=== PATIENT | male | born 1945 | race Caucasian/White ===

== ENCOUNTER 2016-07-25 08:03 | Emergency (ER) | payer MEDICARE ==
[~2016-07-25 08:03] MED LIST: Aspirin Low Dose CHEW TAB* 81 MG PO ONE
[2016-07-25] MEDS ORDERED: Nitroglycerin TAB 0.4 MG* 0.4 MG TAB SL ONE (08:13)
[2016-07-25] MEDS ORDERED: NS 0.9% 1000 ML* 1,000 ML IV ONE (08:13)
[2016-07-25 08:57] LABS: Hematocrit 43 % (42-52); Hemoglobin 14.6 g/dl (14.0-18.0); Mean Corpuscular HGB Conc 34 g/dl (31-36); Mean Corpuscular Hemoglobin 31 pg (27-31); Mean Corpuscular Volume 91 fL (80-94); Mean Platelet Volume 8 um3 (7.4-10.4); Red Blood Count 4.79 10^6/ul (4.0-5.4); Red Cell Distribution Width 14 % (10.5-15); White Blood Count 5.5 10^3/ul (3.5-10.8)
[2016-07-25 08:58] LABS: BUN/Creatinine Ratio 20.6 (8-20); Calcium 8.9 mg/dL (8.6-10.3); EGFR African American 66.6 (>60); EGFR Non-African American 51.8 (>60); Globulin 3.6 g/dL (2-4); Total Bilirubin 0.6 mg/dL (0.2-1.0); Total Protein 7.6 g/dL (6.4-8.9)
[2016-07-25 08:59] LABS: Troponin I 0.01 ng/mL (<0.04)
--- NOTE | 2016-07-25 09:08 | RAD ---
Indication: Sudden onset chest pain and shortness of breath. Previous myocardial infarction. Comparison: February 07, 2007 Technique: Upright AP 0850 hours Report: Mild elevation of the RIGHT hemidiaphragm increased over the prior exam. Mild prominence of the interstitial markings. Negative for pleural effusion or pneumothorax. Median sternotomy wires. Negative for cardiomegaly. Unremarkable central pulmonary vasculature and mediastinal contours. IMPRESSION: Mild prominence of the interstitial markings. No acute cardiopulmonary process evident.
[2016-07-25 11:18] VITALS: BP 102/64
--- NOTE | 2016-07-25 16:23 | ED ---
Moises Kiran Adam, scribed for Raul Hook MD on 07/25/16 at 0819 . HPI Chest Pain - HPI Summary HPI Summary: 70 y/o male presents to the ED and c/o CP and is concerned about MN. He describes the pain as hot and numb, especially on one side of the body. [employer]IC he took one baby aspirin and one tab NTG to with little alleviation. He states that he gets this same CP frequently at home. Pt states he also feels SOB, but denies any abd pain. He is currently on blood thinner but no pacemaker, and has a history of CAD and CHF including previous MN and 3 CABG's, the last of which 4 years ago. - History of Current Complaint Hx Obtained From: Patient Onset/Duration: Still Present Timing: Constant Initial Severity: Moderate Current Severity: Moderate Pain Intensity: 0 Character: Other: - Hot and Numb Aggravating Factor(s): Deep Breaths Alleviating Factor(s): OTC Meds - NTG and baby Aspirin (very little effect) Associated Signs and Symptoms: Positive: Chest Pain, Numbness, Shortness of Breath. Negative: Fever, Abdominal Pain - Allergy/Home Medications Allergies/Adverse Reactions: Allergies Allergy/AdvReac Type Severity Reaction Status Date / Time Heparin Allergy Bleeding Verified 07/25/16 08:23 PMH/Surg Hx/FS Hx/Imm Hx Cardiovascular History: Reports: Hx Congestive Heart Failure, Hx Coronary Artery Disease, Hx Myocardial Infarction Infectious Disease History: Denies: Traveled Outside the [place] in Last 30 Days - Family History Known Family History: Positive: Diabetes - Father - Social History Occupation: Disabled Lives: With Family - Review of Systems Negative: Fever Positive: Chest Pain Positive: Shortness Of Breath Negative: Abdominal Pain Positive: Other - pallor Positive: Numbness All Other Systems Reviewed And Are Negative: Yes Physical Exam - Summary Physical Exam Summary: The patient is well-nourished in no acute distress and in no acute pain. The skin is diaphoretic and pallor HEENT: The head is normocephalic and atraumatic. The pupils are equal and reactive. The conjunctivae are clear and without drainage. Nares are patent and without drainage. Mouth reveals moist mucous membranes and the throat is without erythema and exudate. The external ears are intact. The ear canals are patent and without drainage. The tympanic membranes are intact. Neck is supple with full range of motion and non-tender. There are no carotid bruits. There is no neck vein distension. Respiratory: Chest is non-tender. Lungs are clear to auscultation and breath sounds are symmetrical and equal. Cardiovascular: Hear is regular rate and rhythm. There is no murmur or rub auscultated. There is no peripheral edema and pulses are symmetrical and equal. Reproducible chest pain tenderness to palpation. Abdomen: The abdomen is soft and non-tender. There are normal bowel sounds heard in all four quadrants and there is no organomegaly palpated. Musculoskeletal: There is no back pain noted. Extremities are non-tender with full range of motion. There is good capillary refill. There is no peripheral edema or calf tenderness elicited. Neurological: Patient is alert and oriented to person, place and time. The patient has symmetrical motor strength in all four extremities. Cranial nerves are grossly intact. Deep tendon reflexes are symmetrical and equal in all four extremities. Psychiatric: The patient has an appropriate affect and does not exhibit any anxiety or depression. Triage Information Reviewed: Yes Vital Signs On Initial Exam: Initial Vitals Temp Pulse Resp BP Pulse Ox 98.2 F 60 18 98/60 97 07/25/16 08:08 07/25/16 08:08 07/25/16 08:08 07/25/16 08:08 07/25/16 08:08 Vital Signs Reviewed: Yes Diagnostics - Vital Signs Vital Signs Temp Pulse Resp BP Pulse Ox 07/25/16 08:08 98.2 F 60 18 98/60 97 - Laboratory Lab Results: Trop I: 0.01 Result Diagrams: 07/25/16 08:30 07/25/16 08:30 Lab Statement: Any lab studies that have been ordered have been reviewed, and results considered in the medical decision making process. - Radiology CXR Radiology Interpretation Completed By: Radiologist - Impression: Mid prominence of the interstitial markings, No acute cardiopulmonary process evident. - EKG 0803 Cardiac Rate: NL EKG Rhythm: Sinus Rhythm EKG Interpretation: No STEMI Re-Evaluation - Re-Evaluation First Eval Re-Evaluation Time: 10:19 - Reviewed labs, CXR, EKG, discussed admission for observation Second Eval Re-Evaluation Time: 11:09 - Patient does not wish to be admitted, so he will sign out AMA. Chest Pain Course/Dx - Course Course Of Treatment: 10:28 - Pt will be admitted. 11:09 - Pt does not wish to be admitted. He will sign out AMA. We discussed the risks of leaving against medical advice, including the risk of . Patient has a moderate risk of heart disease. - Chest Pain Differential Diagnosis/HQI/PQRI: Acute MN, Angina, Other: - ama - Diagnoses Provider Diagnoses: CHEST PAIN, AMA, Angina Discharge - Discharge Plan Condition: Stable Disposition: AGAINST MEDICAL ADVICE Patient Education Materials: Angina (ED), Chest Pain (ED) Referrals: Elijah Roldan MD [Primary Care Provider] - Additional Instructions: Follow up with the [facility] at [address] The documentation as recorded by the Moises hernandez Adam accurately reflects the service I personally performed and the decisions made by me, Raul Hook MD.
== END 2016-07-25 11:18 | disposition left against medical advice (07) ==
LOC: ED 08:03 → UNDOADMOB 10:52 → MEDTELE 10:52
DX: R07.9 Chest pain, unspecified (principal); I20.9 Angina pectoris, unspecified; R20.0 Anesthesia of skin; R06.02 Shortness of breath
CPT/HCPCS: 36415; 71010; 80053; 83605; 83880; 84484; 85025; 85610; 93005; 99283; A9270-GY

== ENCOUNTER 2016-08-31 21:38 | Emergency (ER) | payer MEDICARE ==
[2016-08-31 22:16] LABS: Hematocrit 40 % (42-52); Hemoglobin 13.5 g/dl (14.0-18.0); Mean Corpuscular HGB Conc 34 g/dl (31-36); Mean Corpuscular Hemoglobin 31 pg (27-31); Mean Corpuscular Volume 90 fL (80-94); Mean Platelet Volume 8 um3 (7.4-10.4); Red Blood Count 4.42 10^6/ul (4.0-5.4); Red Cell Distribution Width 15 % (10.5-15); White Blood Count 7.4 10^3/ul (3.5-10.8)
[2016-08-31 22:27] LABS: ALT 14 U/L (7-52); AST 19 U/L (13-39); Albumin 3.8 g/dL (3.2-5.2); Alkaline Phosphatase 49 U/L (34-104); Anion Gap 9 mmol/L (2-11); BUN/Creatinine Ratio 11.2 (8-20); Blood Urea Nitrogen 16 mg/dL (6-24); CO2 Carbon Dioxide 25 mmol/L (22-32); Calcium 8.8 mg/dL (8.6-10.3); Chloride 101 mmol/L (101-111); Creatine Kinase 85 U/L (10-223); EGFR African American 62.9 (>60); EGFR Non-African American 48.9 (>60); Globulin 3.7 g/dL (2-4); Glucose 144 mg/dL (70-100); Magnesium 1.9 mg/dL (1.9-2.7); Potassium 4.1 mmol/L (3.5-5.0); Sodium 135 mmol/L (133-145); Total Protein 7.5 g/dL (6.4-8.9)
[2016-08-31 22:29] LABS: Troponin I 0.02 ng/mL (<0.04)
--- NOTE | 2016-08-31 22:33 | ED ---
Ferny Kiran Billy, scribed for Ryan Norris MD on 08/31/16 at 2206 . Neurological HPI - HPI Summary HPI Summary: Patient is a 70 y/o male coming to [facility] for evaluation of numbness/weakness in the LUE and both lower extremities since 2030 today. Nothing makes his symptoms better/worse. Patient states he had a similar episode 1 month ago, but he signed out AMA. - History of Current Complaint Chief Complaint: EDWeakness Stated Complaint: WEAKNESS Time Seen by Provider: 08/31/16 22:03 Hx Obtained From: Patient Onset/Duration: Gradual Onset, Started hours ago, Still Present Timing: Constant Onset Severity: Moderate Current Severity: Moderate Neurological Deficit Location: LUE, RLE, LLE Pain Intensity: 8 Pain Scale Used: 0-10 Numeric Character: Weak, Numbness/Tingling Aggravating: Nothing Alleviating: Nothing - Allergy/Home Medications Allergies/Adverse Reactions: Allergies Allergy/AdvReac Type Severity Reaction Status Date / Time Heparin Allergy Bleeding Verified 07/25/16 08:23 PMH/Surg Hx/FS Hx/Imm Hx Cardiovascular History: Reports: Hx Congestive Heart Failure, Hx Coronary Artery Disease, Hx Myocardial Infarction Denies: Hx Pacemaker/ICD Infectious Disease History: No Infectious Disease History: Denies: Traveled Outside the [place] in Last 30 Days - Family History Known Family History: Positive: Diabetes - Father Review of Systems Negative: Fever Positive: Weakness, Numbness All Other Systems Reviewed And Are Negative: Yes Physical Exam Triage Information Reviewed: Yes Vital Signs On Initial Exam: Initial Vitals Temp Pulse Resp BP Pulse Ox 96.7 F 75 17 112/66 95 08/31/16 21:51 08/31/16 21:51 08/31/16 21:51 08/31/16 21:51 08/31/16 21:51 Vital Signs Reviewed: Yes Appearance: Positive: Well-Appearing, No Pain Distress - anxious Skin: Positive: Warm Head/Face: Positive: Normal Head/Face Inspection Eyes: Positive: DAI Neck: Positive: Supple Respiratory/Lung Sounds: Positive: Clear to Auscultation, Breath Sounds Present Cardiovascular: Positive: RRR Abdomen Description: Positive: Nontender, Soft Bowel Sounds: Positive: Present Musculoskeletal: Positive: Strength/ROM Intact Neurological: Positive: Sensory/Motor Intact, Alert, Oriented to Person Place, Time, Normal Gait Psychiatric: Positive: Affect/Mood Appropriate Diagnostics - Vital Signs Vital Signs Temp Pulse Resp BP Pulse Ox 08/31/16 21:51 96.7 F 75 17 112/66 95 - Laboratory Lab Results: Lab Results 08/31/16 08/31/16 08/31/16 Range/Units 21:57 21:57 21:57 WBC 7.4 (3.5-10.8) 10^3/ul RBC 4.42 (4.0-5.4) 10^6/ul Hgb 13.5 L (14.0-18.0) g/dl Hct 40 L (42-52) % MCV 90 (80-94) fL MCH 31 (27-31) pg MCHC 34 (31-36) g/dl RDW 15 (10.5-15) % Plt Count 136 L (150-450) 10^3/ul MPV 8 (7.4-10.4) um3 Neut % (Auto) 66.6 (38-83) % Lymph % (Auto) 20.8 L (25-47) % Mes[place] % (Auto) 10.3 H (1-9) % Eos % (Auto) 1.9 (0-6) % Baso % (Auto) 0.4 (0-2) % Absolute Neuts (auto) 4.9 (1.5-7.7) 10^3/ul Absolute Lymphs (auto) 1.5 (1.0-4.8) 10^3/ul Absolute Monos (auto) 0.8 (0-0.8) 10^3/ul Absolute Eos (auto) 0.1 (0-0.6) 10^3/ul Absolute Basos (auto) 0 (0-0.2) 10^3/ul Absolute Nucleated RBC 0.01 10^3/ul Nucleated RBC % 0.1 Sodium 135 (133-145) mmol/L Potassium 4.1 (3.5-5.0) mmol/L Chloride 101 (101-111) mmol/L Carbon Dioxide 25 (22-32) mmol/L Anion Gap 9 (2-11) mmol/L BUN 16 (6-24) mg/dL Creatinine 1.43 H (0.67-1.17) mg/dL Est GFR ( Amer) 62.9 (>60) Est GFR (Non-Af Amer) 48.9 (>60) BUN/Creatinine Ratio 11.2 (8-20) Glucose 144 H (70-100) mg/dL Lactic Acid 1.6 (0.5-2.0) mmol/L Calcium 8.8 (8.6-10.3) mg/dL Magnesium 1.9 (1.9-2.7) mg/dL Total Bilirubin 0.70 (0.2-1.0) mg/dL AST 19 (13-39) U/L ALT 14 (7-52) U/L Alkaline Phosphatase 49 (34-104) U/L Total Creatine Kinase 85 (10-223) U/L Troponin I 0.02 (<0.04) ng/mL Total Protein 7.5 (6.4-8.9) g/dL Albumin 3.8 (3.2-5.2) g/dL Globulin 3.7 (2-4) g/dL Albumin/Globulin Ratio 1.0 (1-3) TSH Pending Serum Alcohol Pending Result Diagrams: 08/31/16 21:57 08/31/16 21:57 Lab Statement: Any lab studies that have been ordered have been reviewed, and results considered in the medical decision making process. - Radiology CXR Xray Interpretation: No Acute Changes Radiology Interpretation Completed By: ED Physician - CT brain CT Interpretation: No Acute Changes CT Interpretation Completed By: Radiologist - EKG 2338 EKG Interpretation: NSR 69 bpm, poor R-wave progression, LBBB NIH Scale - NIH Scale Level of Consciousness: Alert/Keenly Responsive Ask Patient the Month and His/Her Age: Both Correct Ask Pt to Open/Close Eyes and Manager Lpn/Release Non-Paretic Hand: Both Correctly Best Gaze (Only Horizontal Eye Movement): Normal Visual Field Testing: No Visual Loss Facial Paresis-Pt to Smile & Close Eyes or Grimace Symmetry: Normal/Symmetrical Motor Function - Right Arm: No Drift-Holds 10 Seconds Motor Function - Left Arm: No Drift-Holds 10 Seconds Motor Function - Right Leg: No Drift-Holds 10 Seconds Motor Function - Left Leg: No Drift-Holds 10 Seconds Limb Ataxia-Must be out of Proportion to Weakness Present: Absent Sensory (Use Pinprick to Test Arms/Legs/Trunk/Face): Normal Best Language (Describe Picture, Name Items): No Aphasia Dysarthria (Read Several Words): Normal Extinction and Inattention: No Abnormality Total Score: 0 Re-Evaluation - Re-Evaluation First Eval Re-Evaluation Time: 00:52 Change: Improved Comment: Labs reviewed. Course/Dx - Diagnoses Provider Diagnoses: Weakness Discharge - Discharge Plan Condition: Stable Disposition: HOME Patient Education Materials: Weakness (ED) Referrals: Elijah Roldan MD [Primary Care Provider] - The documentation as recorded by the Ferny hernandez Billy accurately reflects the service I personally performed and the decisions made by me, Ryan Norris MD.
[2016-08-31 22:58] LABS: Alcohol < 10 mg/dL (<10)
[2016-08-31 23:09] LABS: TSH (Thyroid Stimulating Horm) 2.74 mcIU/mL (0.34-5.60)
[2016-08-31 23:15] VITALS: BP 124/68
--- NOTE | 2016-09-01 07:27 | RAD ---
INDICATION: Weakness, paresthesias. COMPARISON: There are no prior studies available for comparison. TECHNIQUE: Contiguous axial sections of the brain were obtained from the skull base to the vertex without contrast. FINDINGS: The ventricles, cisterns and sulci are enlarged consistent with age-related atrophy. 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 No other focal abnormalities or mass effect are seen. There is no evidence for hemorrhage. No significant focal osseous abnormality is seen. The visualized portion of the paranasal sinuses and mastoid air cells appear clear. IMPRESSION: NO EVIDENCE FOR GROSS ACUTE INFARCT, MASS EFFECT OR HEMORRHAGE.
--- NOTE | 2016-09-01 07:38 | RAD ---
INDICATION: Chest pain. COMPARISON: Comparison prior chest x-ray study from July 25 2016. Correlation is also made with a prior study from February 07, 2007. TECHNIQUE: AP and lateral views of the chest were obtained. FINDINGS: The patient is status post sternotomy. The heart is within normal limits in size. The lungs are underinflated. There is mild prominence of interstitial markings which are unchanged. No focal infiltrate or pleural effusion is seen. IMPRESSION: POSTSURGICAL CHANGES, NO EVIDENCE FOR ACUTE FINDING.
== END 2016-09-01 01:30 | disposition home or self-care (01) ==
LOC: ED 21:38
DX: R53.1 Weakness (principal); Z53.21 Procedure and treatment not carried out due to patient leaving prior to being seen by health care provider
CPT/HCPCS: 36415; 70450; 71020; 80053; 80320; 82550; 83605; 83735; 84443; 84484; 85025; 93005; 99283; G0480

== ENCOUNTER 2016-10-01 08:29 | Inpatient (IN) | payer MEDICARE, OTHER ==
[2016-10-01] MEDS ORDERED: Aspirin Low Dose CHEW TAB* 81 MG PO ONE (08:36)
[2016-10-01] MEDS ORDERED: Metoprolol Tartrate IV* 1 MG/ML 5 ML VIAL IV ONE (08:37)
[2016-10-01] MEDS ORDERED: Morphine INJ* 4 MG/ML 1 ML SYRINGE IV ONE (08:37)
[2016-10-01] MEDS ORDERED: NS 0.9% 1000 ML* 1,000 ML IV ONE (08:37)
[2016-10-01 09:16] LABS: Hematocrit 37 % (42-52); Hemoglobin 12.2 g/dl (14.0-18.0); Mean Corpuscular HGB Conc 33 g/dl (31-36); Mean Corpuscular Hemoglobin 30 pg (27-31); Mean Corpuscular Volume 93 fL (80-94); Mean Platelet Volume 8 um3 (7.4-10.4); Red Blood Count 4.03 10^6/ul (4.0-5.4); Red Cell Distribution Width 15 % (10.5-15); White Blood Count 5.4 10^3/ul (3.5-10.8)
[2016-10-01 09:30] LABS: Albumin 3.8 g/dL (3.2-5.2); BUN/Creatinine Ratio 12.7 (8-20); Calcium 9.1 mg/dL (8.6-10.3); EGFR African American 92.6 (>60); Globulin 3.7 g/dL (2-4); Potassium 4.3 mmol/L (3.5-5.0); Total Bilirubin 0.8 mg/dL (0.2-1.0); Total Protein 7.5 g/dL (6.4-8.9)
--- NOTE | 2016-10-01 09:32 | RAD ---
HISTORY: Chest pain COMPARISONS: August 31, 2016 VIEWS:1: Single frontal portable view of the chest at 8:45 AM FINDINGS: LINES AND TUBES: None. CARDIOMEDIASTINAL SILHOUETTE: The cardiomediastinal silhouette is normal for portable technique. PLEURA: The costophrenic angles are sharp. No pleural abnormalities are noted. LUNG PARENCHYMA: There is a diffuse reticular pattern with indistinct pulmonary vessels. ABDOMEN: The upper abdomen is clear. There is no subphrenic gas. BONES AND SOFT TISSUES: The patient is status post median sternotomy. IMPRESSION: PULMONARY INTERSTITIAL EDEMA
[2016-10-01 10:03] LABS: Troponin I 1.35 ng/mL (<0.04)
[2016-10-01] MEDS ORDERED: Metoprolol Succinate XL TAB* 50 MG PO SCH (12:00)
[2016-10-01] MEDS ORDERED: HYDROcodone/ACETAMIN 5-325 MG* 1 TAB PO PRN (12:00)
[2016-10-01] MEDS ORDERED: Gabapentin CAP(*) 400 MG PO SCH (14:00)
[2016-10-01] MEDS ORDERED: Clopidogrel TAB* 300 MG PO ONE (14:31)
[2016-10-01] MEDS ORDERED: Perflutren Lipid Microsphere* 3 ML VIAL ONE (14:42)
--- NOTE | 2016-10-01 15:00 | CONS ---
ER CONSULTATION: DATE OF CONSULT: 10/01/16 HISTORY OF PRESENT ILLNESS: Mr. Muñiz is a 71-year-old gentleman followed [facility] including [facility]iology with a history of extensive atherosclerotic heart disease with three-vessel bypass in 2005. The patient awoke with cramping in his legs, was massaging his legs, sat in the chair, and then developed substernal chest discomfort. He says that he had taken all his usual medications. On arrival to the emergency room, he was in a sinus tachycardia with diffuse ST depression across the precordial leads. With beta- blockade, the ST depression improved and nearly normalized. The patient is still having some mild chest discomfort, but is much, much better. PAST MEDICAL HISTORY: The patient has a past medical history of coronary artery disease, bypass surgery in 2005 at [facility]. Other details not available to me. Per the patient, he has had a total of 3 separate bypass surgeries. According to the patient, he has had electrophysiology ablation done at [facility] possibly by Dr. Todd, records not available, questionable V-tach or atrial fibrillation by history. History of DVT and pulmonary embolus, diabetes. He had pericardial stripping in 2001, last bypass was in 2005. Per verbal report from the [facility] physician, all 3 major vessels are occluded. He has a ELIDA to the LAD, a saphenous vein graft to mid LAD, and a saphenous vein graft to the first diagonal. PAST SURGICAL HISTORY: Includes just bypass and carpal tunnel. MEDICATIONS: Current outpatient medications per ER nurses include: 1. Metoprolol 50 mg b.i.d. 2. Potassium chloride 15 mL b.i.d. 3. Coumadin. 4. Plaquenil 200 mg a day. 5. [place] 5/325 one tab p.o. q.6 hours. 6. Lisinopril 5 mg a day. 7. Neurontin 400 mg t.i.d. 8. Colace. 9. Flexeril 20 mg q.h.s. 10. Lasix 60 mg a day. 11. Calcium and vitamin D two tabs daily. 12. Lipitor 40 mg a day. 13. Aspirin 81 mg a day. 14. Nitroglycerin p.r.n. ALLERGIES: There is a documentation of HEPARIN allergies in old records that it is prothrombotic. FAMILY HISTORY: Positive for early atherosclerotic heart disease. SOCIAL HISTORY: The patient is , lives in [place]. REVIEW OF SYSTEMS: Negative for orthopnea or PND. Positive for the leg cramping. He did take nitroglycerin for the pain. PHYSICAL EXAM: The patient is 5 feet 10 inches, weighs 218 pounds with BMI of 31.3. Vitals on arrival to the ED: Blood pressure 121/89, pulse was 145 and regular, temperature 98.2, respiratory rate 23, oxygen saturation on room air 99 %- 100%. General Appearance: Centripetally obese, older gentleman, lying at 45 degrees, in no acute distress. Psychologically, pleasant, cooperative, appropriate. Neurologically, awake, alert, oriented to person, place, and time. Cranial nerves II through XII grossly intact. Follows commands well. Speech is articulate. Moves all extremities in the examining table. Formal neurological exam not done. Skin: Warm and dry. saphenous vein graft harvest site on the lower extremity noted and brawny discoloration and shiny skin on the legs noted. Slightly pale, but no overt cyanosis. HEENT: Pupils are equal and round. Mucous membranes most. Neck: Without thyromegaly or lymphadenopathy. Good carotid pulses without audile bruits. Breath sounds had a few crackles in the bases and mildly diminished breath sounds throughout. Coronary: S1, S2 regular, distant, without murmurs. Abdomen: Rotund, active bowel sounds, soft, and nontender. No appreciable hepatosplenomegaly. Lower extremities: Lukewarm, free of edema. Distal pulses hard to get. DIAGNOSTIC STUDIES/LAB DATA: EKG on arrival, the patient was in sinus tachycardia at 143 beats per minute, QRS axis -30 with normal AV and IV conduction time. He is in R prime V1 and V2 consistent with an incomplete right bundle branch block. He has [address] depression across the precordial leads V3 through V6. Inverted T-waves V1 and V2. Some nonspecific ST changes in the inferior leads. He has QS complexes leads 3 and aVF, possible old inferior wall IN. Repeat EKG after metoprolol shows normal sinus rhythm 87 beats per minutes, QRS axis -30, borderline first-degree AV block, R prime V1 and V2 and near normalization of the ST, there is very subtle ST depression in the lateral leads V1, aVL, V5, and V6. Compared with baseline EKG we have from 08/31/16, the STs have not normalized. On that EKG, he had poor R-wave progression and a left bundle branch block is approached to the incomplete right bundle branch block here today. Chest x-ray showed interstitial edema. Labs: Sodium 137, potassium 4.3, chloride 107, bicarbonate 23, glucose 143, BUN 13, creatinine 1.02, ALT of 16, AST 40. Troponin I 1.35. No INR done. D- dimer less than 200. White count 5.4, hemoglobin 12.2, hematocrit 37, and platelets 155. ASSESSMENT AND PLAN: In summary, Alexsander Muñiz is a 71-year-old gentleman with known extensive atherosclerotic disease with a history of multiple bypass surgeries, pericardial stripping for constriction, his ejection fraction is unknown to me. He presented with chest pain and evidence of precordial ischemia based on his EKG. He is improved with beta-blockade, but has evidence of elevated troponins. He is a high risk cardiovascular patient. I contacted [facility] including WALDO Rocha; and Dr. Fisher, cardiovascular attending. He is a 100% service connected, but they have no labor specialist running, now it is being upgraded. They agree that admission is in order. If they did accept [facility] the [facility], they would have to transfer him for cath. The current plan is to admit him here which the patient is amenable to, optimize his medical management. We are getting old records from the [facility]. This could be tachycardic-induced ischemia because of the congestive heart failure, but it could also be ischemia based on pain or possibly sleep apnea that led to congestive heart failure. Based on his elevated troponins and high risk cardiovascular profile, he will likely need to proceed to the labor specialist. In term of medical management, I recommend resuming oral beta blockers, load with plavix, echo, he may need gentle diuresis. Additional recommendations will be made pending his clinical course, review of his past records and response to the above measures. CC: [facility] in [place]* [id number]/CPS #: [id number] BRENDA
--- NOTE | 2016-10-01 15:08 | HP ---
HOSPITAL MEDICINE HISTORY AND PHYSICAL: DATE OF ADMISSION: 10/01/16 PRIMARY CARE PHYSICIAN: Dr. Ramirez at [facility] and Dr. Ervin. ATTENDING PHYSICIAN: Dr. Navya Alvarez *(dictation provided by Jolanta Brown NP) . CHIEF COMPLAINT: Chest pain. HISTORY OF PRESENT ILLNESS: Mr. Muñiz is a 71-year-old male with a past medical history of coronary artery disease with bypass x2 with also reported pericardial stripping, history of DVT and PE, hypertension, diet controlled diabetes, and lupus, who presents today to the hospital with concern for chest pain. Mr. Muñiz states that he was feeling in his normal state of health yesterday without any acute complaints. At 3 a.m. this morning, he awoke with severe leg cramping bilaterally. This was an unusual symptom for him and has had no recent similar complaint. He sat on the edge of the bed for a moment and then went into the living room. By 4 a.m. he was having severe substernal chest pain. He stated the pain was at least 10/10. He took aspirin x3 and nitroglycerin x2 but his pain continued unabated. He spoke to his son and then his inner tube inserter, who both recommended that he come the emergency room and he finally acquiesced to call EMS. With EMS he was given additional nitroglycerin again without any real change in his chest pain. His heart rate was then noted to be quite elevated up into the 120s while with EMS and they also noted that he had ST depressions in V4 through V6. Mr. Muñiz states that he has had similar episodes of chest pain in the past. He describes being admitted to [facility] and it appears also at the [place] approximately 2 to 3 years ago with a complaint of chest pain. At that time he states that his heart rate was "very hard to control." He remained in the hospital for 4 days. He appears to be describing being cardioverted and also undergoing an ablation. He states that the pain he felt today is similar in severity and location to that which he experienced during that episode. He reports having 2 episodes since then that are also consistent with these. He does not routinely have chest dalal with activity but states his activity is limited by shortness of breath. He is able to lay flat at home while sleeping. He has no known history of congestive heart failure though he does endorse taking Lasix 60 mg daily since his first coronary artery bypass graft. In the emergency room, Mr. Muñiz's EKG showed a heart rate of [address] depressions in at least V3 through V6. Shortly thereafter he had a repeated EKG which showed his heart rate in the 80s and improvement and near resolution of ST depressions noted previously. The patient's first troponin is 1.35. His chest x-ray shows a pulmonary interstitial edema. He is complaining a 5/10 mid sternal chest discomfort. PAST MEDICAL HISTORY: 1. Coronary artery bypass graft x2. 2. Pericardial stripping. 3. History of DVT/PE, on Coumadin. 4. Question of history of atrial fibrillation based on patient's description of difficult to control heart rate and possible cardioversion at recent hospitalization in [place]. 5. Right carpal tunnel release. 6. Cervical spine fusion. 7. Lupus. 8. Hypertension. 9. Diet controlled diabetes. MEDICATIONS: 1. Aspirin 81 mg p.o. daily. 2. Calcium, magnesium with vitamin D 1 tab p.o. b.i.d. 3. Nitroglycerin 0.4 mg sublingually as needed. 4. Potassium chloride with sodium 15 mL p.o. b.i.d. 5. Atorvastatin 40 mg p.o. daily. 6. Cyclobenzaprine 20 mg p.o. at bedtime. 7. Docusate 100 mg p.o. b.i.d. 8. Furosemide 60 mg p.o. daily. 9. Gabapentin 400 mg p.o. t.i.d. 10. Hydrocodone with acetaminophen 5/325 mg 1 tab p.o. q.6 hours p.r.n. 11. Hydrochloroquine 200 mg p.o. daily. 12. Lisinopril 5 mg p.o. daily. 13. Metoprolol tartrate 50 mg p.o. b.i.d. 14. Warfarin 4 mg on Thursday, , and 2 mg on Thursday, Thursday, Thursday, Thursday, Thursday. ALLERGIES: HEPARIN. FAMILY HISTORY: The patient reports his mother was the first female recipient of a coronary artery bypass graft in [facility]. She at 61. Dad had diabetes. He has 2 living children; a daughter is alive and well and the son is alive and has diabetes. SOCIAL HISTORY: No reported alcohol, tobacco, or drug use. The patient lives with his who is his healthcare proxy. REVIEW OF SYSTEMS: Constitutional: No fevers, no chills. No unintended weight loss. Cardiac: Positive chest pain as described above. Respiratory: No cough, no hemoptysis. No shortness of breath. GI: No nausea, vomiting, diarrhea or abdominal pain. : No gross hematuria, dysuria. Neuro: No focal weakness or sensory loss. Eyes: No visual complaints. The patient states that his poor vision in related to history of lupus. ENT: No dysphagia. Musculoskeletal: No arthralgias, myalgias, and skin rashes or lesions. Psych: No depression or anxiety. PHYSICAL EXAMINATION GENERAL: Mr. Muñiz is sitting up in the bed. He is in no acute distress. He is calm and cooperative on my examination. VITAL SIGNS: Temperature is 98.2, heart rate 82, respiratory rate 14, O2 saturation 98% on room air, blood pressure is 122/91 LUNGS: Have inspiratory crackles bilaterally with some rales in bilateral bases right greater than l eft HEART: S1 and S2. No murmur, gallop and regular. ABDOMEN: Soft, nontender with bowel sounds x4. EXTREMITIES: No cyanosis or edema. NEUROLOGIC: He is alert and oriented x3. He moves all extremities equally. There is no facial asymmetry. No focal weakness. Extraocular movement movements are intact. SKIN: Intact. DIAGNOSTIC STUDIES/LABORATORY DATA: Sodium 137, potassium 4.3, chloride 107, serum bicarbonate 23, BUN 13, creatinine 1.02, glucose 143, lactic acid 1.3, troponin 1.35. WBC of 5.4, hemoglobin 12.2, hematocrit 37, platelet count 155. INR was 2.3. D-dimer was less than 200. Chest x-ray interstitial pulmonary edema. The EKG initially shows a heart rate of about [address] depressions in V3 through V6. Shortly thereafter at about an hour later EKG was repeated, continued to show sinus rhythm now with the heart rate in the 80s and improvement to near resolution of ST depressions noted previously. ASSESSMENT: Mr. Muñiz is a 71-year-old male with past medical history of coronary artery disease with coronary artery bypass graft x2, pericardial stripping, history of deep venous thrombosis/pulmonary embolism, on Coumadin, diet controlled diabetes and question of possible history of atrial fibrillation who presented to the hospital today with concern for chest pain. He has been found to have initially have a sinus tachycardia with ST depressions in the V leads and a troponin elevated to 1.43. The patient has to be admitted to the hospital with non- ST elevation myocardial infarction. Our plan is as follows: 1. Non-ST elevation myocardial infarction. Appreciate the consultation from Dr. Lance who has already seen the patient in the emergency room. She has spoken directly with the patient's inner tube inserter WALDO, Mr. Alonso Delgado and the patient's inner tube inserter Dr. Fisher. They are going to be sending over records of the patient's history of extensive coronary artery disease with multiple interventions. Dr. Lance has spoken with Dr. Fletcher and there is no plan for immediate cardiac cath but this will be discussed further after records are obtained. Plan at this point is to repeat troponins, the second is pending now. Planning an EKG with the second troponin as well. Again the patient's heart rate is controlled after metoprolol and his ST depressions have resolved. Question whether or not his troponin elevation is also secondary to his elevated heart rate. He is also going to continue on the remainder of his home medications including lisinopril. He will also be on aspirin routinely and atorvastatin. He is anticoagulated with warfarin. 2. History of deep venous thrombosis/pulmonary embolism. Plan to continue warfarin as the INR is therapeutic. 3. History of hypertension. Continue metoprolol, lisinopril. 4. Question of atrial fibrillation. The patient is currently in sinus rhythm. We will await records from Mr. KilgoreToledo's office regarding this suspected diagnosis and treat accordingly. 5. Hyperlipidemia. Continue atorvastatin. 6. Chronic pain. Continue home medications. 7. History of congestive heart failure. The patient has no documented history of congestive heat failure per his report. Again we are awaiting records from the inner tube inserter's office including transthoracic echocardiogram. In the mean time, the patient will continue on his home furosemide. He has no lower extremity edema. He does show pulmonary edema on his chest x-ray but he is not hypoxic nor short of breath and I think this likely will resolve with good control of heart rate. 8. Lupus. Continue Plaquenil. 9. DVT prophylaxis with therapeutic INR and SCDs. 10. Disposition. To telemetry floor. TIME SPENT: Approximately 75 minutes was spent in admission of this patient, more than half the time spent with patient at the bedside, reviewing the events leading up to this hospitalization performing the physical examination, and reviewing my plan of care. JOLANTA BROWN NP CC: WALDO [place] at [facility]; and Dr. Rmairez. * [id number]/CPS #: [id number] CABRINI MEDICAL CENTERBrandi
[2016-10-01] MEDS ORDERED: Perflutren Lipid Microsphere* 3 ML VIAL IV ONE (16:00)
--- NOTE | 2016-10-01 16:46 | ECHO ---
Patient: MEREDITH GARCIA [facility] Rec#: [id number] : 1945 Date: 10/01/2016 Age: 71y Height: 177.8 cm / 70.0 in Weight: 98.88 kg / 217.9 lbs Sex: M BSA: 2.17 Room#: 443 Admit Date#: 10/01/2016 Type: Inpatient Referring: Jolanta Brown NP Reading: Stephen Wilson MD Human Resources Benefits Manager: Mirella Figueroa PERI CC: Elijah Roldan MD Transthoracic Echocardiogram Indication: NSTEMI BP: 127/87 HR: 89 Rhythm: NSR Findings History: S/P CABG 3 diffenernt times,OR,CHF. Technical Comments: The study is technically limited due to patient body habitus. Completed at 1538. Left Ventricle: The left ventricular chamber size is normal. Mild concentric left ventricular hypertrophy is observed. There is global hypokinesis of the left ventricle with minor regional variation. There is moderately decreased left ventricular systolic function. The estimated ejection fraction is 30-35%. Post surgical hypokinesis of the interventricular septum is observed consistent with coronary artery bypass. Abnormal left ventricular diastolic function is observed. The left ventricular diastolic filling pattern is consistent with pseudonormalization. The basal anterior, basal anterolateral, basal inferolateral, basal inferior, basal inferoseptal, mid anterolateral, mid inferolateral, mid inferior, apical lateral, and apical inferior wall segments are hypokinetic (score 2). Overall wallmotion score index is 1.63 Left Atrium: The left atrium is severely dilated. Right Ventricle: The right ventricular cavity size is normal. The right ventricular global systolic function is mildly reduced. The septum has abnormal paradoxical motion consistent with post-operative pressure. Right Atrium: The right atrial cavity size is normal. Aortic Valve: The aortic valve is trileaflet. The aortic valve leaflets are moderately thickened. Systolic excursion of the aortic valve cusps is reduced. There is moderate aortic regurgitation. There is moderate aortic stenosis.by continuity. Moderate to severe by 2d. The peak gradient may underestimate the degree of due to the low CO. The highest aortic valve velocity was obtained with the standard probe from the A5C view. Mitral Valve: There is mitral annular calcification. Mitral valve leaflet mobility is mildly restricted.The posterior leaflet seems to be restricted due to annular calcium. There is moderate mitral regurgitation. There is no evidence of mitral stenosis. Tricuspid Valve: The tricuspid valve leaflets are normal. There is moderate tricuspid regurgitation. There is evidence of moderate pulmonary hypertension. There is no tricuspid stenosis. Pulmonic Valve: The pulmonic valve appears normal. There is no evidence of pulmonic regurgitation. There is no pulmonic stenosis. Pericardium: A pericardial fat pad is visualized. Aorta: There is no dilatation of the ascending aorta. The aortic arch is not well visualized. There is no dilation of the aortic root. Pulmonary Artery: The main pulmonary artery appears normal. Contrast: Definity was used to optimize study. A total of 4ml. used. Intravenous contrast was used to enhance endocardial border definition. Conclusions Mild concentric left ventricular hypertrophy is observed. There is global hypokinesis of the left ventricle with minor regional variation. There is moderately decreased left ventricular systolic function. The estimated ejection fraction is 30-35%. The left ventricular diastolic filling pattern is consistent with pseudonormalization. The left atrium is severely dilated. The right ventricular global systolic function is mildly reduced. There is moderate aortic regurgitation. There is moderate aortic stenosis by continuity. Moderate to severe by 2d. The peak gradient may underestimate the degree of due to the low CO. Mitral valve leaflet mobility is mildly restricted. The posterior leaflet seems to be restricted due to annular calcium. There is moderate mitral regurgitation. There is moderate tricuspid regurgitation. There is evidence of moderate pulmonary hypertension. No prior echo reports at this time. Measurements Name Value Normal Range RVIDd (AP) 2D 2.5 cm (0.9 - 2.6) RVDdMajor (2D) 3.1 cm (2.2 - 4.4) RAd ISD 4CH 4.9 cm (3.4 - 4.9) RA (A4C)W 3.1 cm (2.9 - 4.6) IVSd (2D) 1.2 cm (0.6 - 1) LVPWd (2D) 1.1 cm (0.6 - 1) LVIDd (2D) 4 cm (3.6 - 5.4) LVIDs (2D) 3.6 cm - LV FS (2D) 10 % (25 - 45) Aortic Annulus 2.2 cm (1.4 - 2.6) Ao root diameter (2D) 3.5 cm (2.1 - 3.5) Ascending Ao 3.3 cm (2.1 - 3.4) LA dimension (AP) 2D 4.3 cm (2.3 - 3.8) LAd ISD 4CH 6.3 cm (2.9 - 5.3) LA ISD 4CH W 5.4 cm (2.5 - 4.5) Name Value Normal Range LA ESV SP 4CH (A/L) 73 ml - LA ESV SP 2CH (A/L) 96 ml - LA ESV BP (A/L) 88 ml - LA ESV BP (A/L) index 40.36 ml/m2 - LA ESV SP 4CH (MOD) 70 ml - LA ESV SP 2CH (MOD) 95 ml - Name Value Normal Range MV E-wave Vmax 1.3 m/sec - MV deceleration time 220 msec - MV A-wave Vmax 0.9 m/sec - MV E:A ratio 1.44 ratio - LV septal e' Vmax 0.05 m/sec - LV lateral e' Vmax 0.04 m/sec - LV E:e' septal ratio 26 ratio - LV E:e' lateral ratio 32.5 ratio - Name Value Normal Range AV Vmax 1.7 m/sec - AV VTI 28 cm - AV peak gradient 11.01 mmHg - AV mean gradient 6.39 mmHg - LVOT diameter 1.8 cm - LVOT Vmax 0.8 m/sec - LVOT VTI 18.3 cm - LVOT peak gradient 2.46 mmHg - LVOT mean gradient 1.11 mmHg - SV LVOT 47 ml - CESAR (continuity Vmax) 1.5 cm2 - CESAR (continuity VTI) 1.7 cm2 - AR PHT 307 msec - AR peak gradient 56.56 mmHg - Name Value Normal Range MR Vmax 4.4 m/sec - MR VTI 132.72 cm - Name Value Normal Range TR Vmax 3.7 m/sec - TR peak gradient 54 mmHg - RAP 8 mmHg - RVSP 62 mmHg - Name Value Normal Range PV Vmax 0.6 m/sec - PV peak gradient 1.39 mmHg - Wallmotion BAS Normal BA Hypokinetic BAL Hypokinetic ISSA Hypokinetic BI Hypokinetic BIS Hypokinetic MAS Normal MA Normal MAL Hypokinetic MIL Hypokinetic OR Hypokinetic MIS Normal Normal AA Normal AL Hypokinetic AI Hypokinetic APEX Hypokinetic
[2016-10-01] MEDS ORDERED: Warfarin TAB(*) 2 MG PO SCH (17:00)
--- NOTE | 2016-10-01 18:49 | ED ---
Ferny Kiran Billy, scribed for Wade Kirk MD on 10/01/16 at 0852 . HPI Chest Pain - HPI Summary HPI Summary: Patient is a 71 year-old with a history of PA [place] [facility] [place] evaluation of left-sided chest pain starting at 0400 this morning. His pain was unrelieved with NTG and worse with breathing. He describes sharp pain feeling similar to his previous PA. Pain severity 10/10. The patient also reports SOB. Denies any recent illness. - History of Current Complaint Chief Complaint: EDChestPainROMI Time Seen by Provider: 10/01/16 08:33 Hx Obtained From: Patient Onset/Duration: Started Hours Ago Time of Onset: 04:00 Timing: Constant Initial Severity: Moderate Current Severity: Moderate Pain Intensity: 10 Pain Scale Used: 0-10 Numeric Chest Pain Location: Left Anterior Chest Pain Radiates: No Character: Sharp/Stabbing Aggravating Factor(s): Deep Breaths Alleviating Factor(s): Nothing Associated Signs and Symptoms: Positive: Chest Pain, Shortness of Breath - Allergy/Home Medications Allergies/Adverse Reactions: Allergies Allergy/AdvReac Type Severity Reaction Status Date / Time Heparin Allergy Bleeding Verified 10/01/16 09:43 Home Medications: Home Medications Aspirin EC Low Dose* [Ecotrin EC Low Dose 81 MG*] 81 mg PO DAILY 10/01/16 [ History Confirmed 10/01/16] Atorvastatin* [Lipitor*] 40 mg PO DAILY 10/01/16 [History Confirmed 10/01/16] Calcium-Magnesium W/ Vitamin D [Calcium 500] 1 tab PO BID 10/01/16 [History Confirmed 10/01/16] Cyclobenzaprine TAB* [Flexeril 10 MG TAB*] 20 mg PO BEDTIME 10/01/16 [History Confirmed 10/01/16] Docusate Sodium 100 mg PO BID 10/01/16 [History Confirmed 10/01/16] Furosemide [Lasix] 3 tab PO DAILY 10/01/16 [History Confirmed 10/01/16] Gabapentin CAP(*) [Neurontin 400 mg CAP(*)] 400 mg PO TID 10/01/16 [History Confirmed 10/01/16] HYDROcodone/ACETAMIN 5-325 MG* [[place] 5-325 TAB*] 1 tab PO Q6H PRN 10/01/16 [ History Confirmed 10/01/16] Hydroxychloroquine TAB* [Plaquenil TAB*] 200 mg PO DAILY 10/01/16 [History Confirmed 10/01/16] Lisinopril [Zestril 10 MG-] 0.5 tab PO DAILY 10/01/16 [History Confirmed ] Metoprolol Tartrate [Lopressor] 50 mg PO BID 10/01/16 [History Confirmed ] Nitroglycerin TAB 0.4 MG* 0.4 mg SL ONCE 10/01/16 [History Confirmed 10/01/16] Potassium Chloride/Sodium 40 Meq/250Ml 15 ml PO BID 10/01/16 [History Confirmed 10/01/16] Warfarin TAB(*) 4 mg PO SEE INSTRUCTIONS 10/01/16 [History Confirmed 10/01/16] PMH/Surg Hx/FS Hx/Imm Hx Cardiovascular History: Reports: Hx Congestive Heart Failure, Hx Coronary Artery Disease, Hx Myocardial Infarction Denies: Hx Pacemaker/ICD Infectious Disease History: No Infectious Disease History: Denies: Traveled Outside the [place] in Last 30 Days - Family History Known Family History: Positive: Cardiac Disease, Diabetes - Father - Social History Alcohol Use: None Substance Use Type: Reports: None Smoking Status (MU): Never Smoked Tobacco Review of Systems Positive: Chest Pain Positive: Shortness Of Breath All Other Systems Reviewed And Are Negative: Yes Physical Exam Triage Information Reviewed: Yes Vital Signs On Initial Exam: Initial Vitals Temp Pulse Resp BP Pulse Ox 98.2 F 143 20 121/89 100 10/01/16 08:36 10/01/16 08:36 10/01/16 08:36 10/01/16 08:36 10/01/16 08:36 Vital Signs Reviewed: Yes Appearance: Positive: Well-Appearing, Pain Distress - Moderate Skin: Positive: Warm, Skin Color Reflects Adequate Perfusion, Dry Head/Face: Positive: Normal Head/Face Inspection Eyes: Positive: Normal ENT: Positive: Normal ENT inspection Neck: Positive: Supple, Nontender Respiratory/Lung Sounds: Positive: Clear to Auscultation, Breath Sounds Present Cardiovascular: Positive: Tachycardia Abdomen Description: Positive: Nontender, Soft Bowel Sounds: Positive: Present Musculoskeletal: Positive: Normal Neurological: Positive: Normal, Sensory/Motor Intact, Alert, Oriented to Person Place, Time Psychiatric: Positive: Affect/Mood Appropriate Diagnostics - Vital Signs Vital Signs Temp Pulse Resp BP Pulse Ox 10/01/16 08:36 98.2 F 143 20 121/89 100 - Laboratory Lab Results: Lab Results 10/01/16 10/01/16 10/01/16 Range/Units 09:03 09:03 09:03 WBC 5.4 (3.5-10.8) 10^3/ul RBC 4.03 (4.0-5.4) 10^6/ul Hgb 12.2 L (14.0-18.0) g/dl Hct 37 L (42-52) % MCV 93 (80-94) fL MCH 30 (27-31) pg MCHC 33 (31-36) g/dl RDW 15 (10.5-15) % Plt Count 155 (150-450) 10^3/ul MPV 8 (7.4-10.4) um3 Neut % (Auto) 74.0 (38-83) % Lymph % (Auto) 14.0 L (25-47) % Alexander % (Auto) 9.8 H (1-9) % Eos % (Auto) 0.9 (0-6) % Baso % (Auto) 1.3 (0-2) % Absolute Neuts (auto) 4.0 (1.5-7.7) 10^3/ul Absolute Lymphs (auto) 0.8 L (1.0-4.8) 10^3/ul Absolute Monos (auto) 0.5 (0-0.8) 10^3/ul Absolute Eos (auto) 0.1 (0-0.6) 10^3/ul Absolute Basos (auto) 0.1 (0-0.2) 10^3/ul Absolute Nucleated RBC 0 10^3/ul Nucleated RBC % 0 INR (Anticoag Therapy) 2.30 H (0.89-1.11) D-Dimer, Quantitative < 200 (Less Than 230) ng/mL Sodium 137 (133-145) mmol/L Potassium 4.3 (3.5-5.0) mmol/L Chloride 107 (101-111) mmol/L Carbon Dioxide 23 (22-32) mmol/L Anion Gap 7 (2-11) mmol/L BUN 13 (6-24) mg/dL Creatinine 1.02 (0.67-1.17) mg/dL Est GFR ( Amer) 92.6 (>60) Est GFR (Non-Af Amer) 72.0 (>60) BUN/Creatinine Ratio 12.7 (8-20) Glucose 143 H (70-100) mg/dL Lactic Acid (0.5-2.0) mmol/L Calcium 9.1 (8.6-10.3) mg/dL Total Bilirubin 0.80 (0.2-1.0) mg/dL AST 40 H (13-39) U/L ALT 16 (7-52) U/L Alkaline Phosphatase 50 (34-104) U/L Troponin I 1.35 H* (<0.04) ng/mL Total Protein 7.5 (6.4-8.9) g/dL Albumin 3.8 (3.2-5.2) g/dL Globulin 3.7 (2-4) g/dL Albumin/Globulin Ratio 1.0 (1-3) / Range/Units 09:03 WBC (3.5-10.8) 10^3/ul RBC (4.0-5.4) 10^6/ul Hgb (14.0-18.0) g/dl Hct (42-52) % MCV (80-94) fL MCH (27-31) pg MCHC (31-36) g/dl RDW (10.5-15) % Plt Count (150-450) 10^3/ul MPV (7.4-10.4) um3 Neut % (Auto) (38-83) % Lymph % (Auto) (25-47) % Alexander % (Auto) (1-9) % Eos % (Auto) (0-6) % Baso % (Auto) (0-2) % Absolute Neuts (auto) (1.5-7.7) 10^3/ul Absolute Lymphs (auto) (1.0-4.8) 10^3/ul Absolute Monos (auto) (0-0.8) 10^3/ul Absolute Eos (auto) (0-0.6) 10^3/ul Absolute Basos (auto) (0-0.2) 10^3/ul Absolute Nucleated RBC 10^3/ul Nucleated RBC % INR (Anticoag Therapy) (0.89-1.11) D-Dimer, Quantitative (Less Than 230) ng/mL Sodium (133-145) mmol/L Potassium (3.5-5.0) mmol/L Chloride (101-111) mmol/L Carbon Dioxide (22-32) mmol/L Anion Gap (2-11) mmol/L BUN (6-24) mg/dL Creatinine (0.67-1.17) mg/dL Est GFR ( Amer) (>60) Est GFR (Non-Af Amer) (>60) BUN/Creatinine Ratio (8-20) Glucose (70-100) mg/dL Lactic Acid 1.3 (0.5-2.0) mmol/L Calcium (8.6-10.3) mg/dL Total Bilirubin (0.2-1.0) mg/dL AST (13-39) U/L ALT (7-52) U/L Alkaline Phosphatase (34-104) U/L Troponin I (<0.04) ng/mL Total Protein (6.4-8.9) g/dL Albumin (3.2-5.2) g/dL Globulin (2-4) g/dL Albumin/Globulin Ratio (1-3) Result Diagrams: 10/01/16 09:03 10/01/16 09:03 Lab Statement: Any lab studies that have been ordered have been reviewed, and results considered in the medical decision making process. - Radiology CXR Radiology Interpretation Completed By: Radiologist - PULMONARY INTERSTITIAL EDEMA. - EKG 0827 EKG Interpretation: sinus tachycardia 143 bpm, LBBB, non-specific changes likely rate-related Chest Pain Course/Dx - Course Course Of Treatment: His ecg on arrival showed a tachycardia and ST depressions anterolaterally. I wasn't sure if these changes were rate related and slowed him with lopressor which helped a great deal. His pain and ecg changes were almost completely gone. His troponin returned elevated at 1.[address] Lance was contacted and came to the ED to consult. - Diagnoses Provider Diagnoses: NSTEMI (non-ST elevated myocardial infarction) - Provider Notifications Discussed Care Of Patient With: Dr. Lance (cardiology) at 1010: recommends admission to hospitalist. Dr. Alvarez (hospitalist) at 1020: accepts admission. - Critical Care Time Critical Care Time: 30-74 min Discharge - Discharge Plan Condition: Stable Disposition: ADMITTED TO [facility] documentation as recorded by the Ferny hernandez Billy accurately reflects the service I personally performed and the decisions made by me, Wade Kirk MD.
[2016-10-01 19:36] VITALS: BP 110/77
--- NOTE | 2016-10-01 20:53 | PN ---
INTERVENTIONAL CARDIOLOGY NOTE: DATE OF SERVICE: 10/01/16 Called by the hospitalist nurse practitioner, Jolanta Brown, to aid in assessing current status of a patient who was seen earlier by Dr. Lance in consultation for chest discomfort and rising troponins. HISTORY OF PRESENT ILLNESS: The patient is a 71-year-old gentleman whose cardiac history dates back to 1997 when he apparently had [facility] [place]. At that time, they did a vein graft to the LAD and a vein graft to posterolateral branch. In 2001, he had pericardial stripping necessitating opening his chest again. By 2005, he ended up having a repeat heart catheterization and at that time he underwent bypass surgery on 12/16/05 with a ELIDA graft to the distal LAD, a vein graft to the mid LAD, and a vein graft to the diagonal branch. In 2014, he underwent ablation therapy at [facility] for atrial flutter, which would provoke his angina. Since that time to now, he had a repeat cardiac catheterization on 11/20, showing that the ELIDA graft to distal LAD was patent, the vein graft to the first diagonal was patent, and the vein graft to the mid diagonal was also patent and medical management was pursued. Apparently according to the patient and Dr. Lance's notes and the hospitalist notes, he awoke with severe leg discomfort and then started having significant chest discomfort. This persisted, he eventually came to the emergency room, was found to be in a tachycardic rate of 140 to 150. Of note, at home he noticed this on his blood pressure cuff as well. He normally does not run a tachycardic rhythm. He was given beta-jacob intravenously and abruptly his heart rate came down to the 80s. Over the course of the day now, his troponin which was initially in the 1 range increased to 8 and then to 16. All day long, he has had mild chest discomfort persisting, subtle in nature, not severe at all. Of note, there was significant improvement of his symptoms when the heart rate came down. He had dramatic ST segment depressions noted that also significantly improved. With each increased troponin, an EKG was checked and is still found to have continuing improvement over the ST segment depressions. PHYSICAL EXAMINATION: When I see the patient reveals a pleasant gentleman, who appears in no obvious acute distress, although he does state he has mild discomfort. He does admit if you touch the chest, he definitely has a discomfort as well but believes that that may be a different type of discomfort. Vital signs reveal blood pressure is 121/83, pulse is regular in the 80s to 90s, O2 saturation is 99% on 3 L, he is afebrile. Neck is supple. No increased JVP. Chest has marked diminished breath sounds bilaterally with minimal crackles. Heart reveals a regular rate and rhythm, distant in nature, soft systolic murmur. Abdomen is obese. Lower extremities have scars bilaterally. OVERALL ASSESSMENT: I discussed the case in general with the hospitalist and at this point in time I honestly believe more of the problem is the potential of him breaking through with atrial flutter with apparently a history of intolerance to AMIODARONE in the past for which he underwent ablation. At this point in time, with his rising troponins, clearly a consideration for possible cardiac catheterization at some point may need to be pursued versus believing that this was old demand ischemia from the increased heart rate. Knowing that he did breakthrough from his ablation therapy and he was not a good candidate for AMIODARONE, I discussed the case with the hospitalist regarding transferring him up to [facility] to be assessed by both the cardiology team and the EP team to decide what would be the best approach. We will leave it up to their decision. Of note, Dr. Lance had discussed the case with the [facility] and they recommended [facility] especially if catheterization was to be needed at a higher degree facility given the fact that their laboratory machinist is currently not available. Of note, the patient is on Coumadin and his INR is 2.3 at this point in time. As such, I discussed the case at length with the on-call sap ppm consultant and they graciously were willing to accept the patient in transfer up for ongoing management. They have the ability obviously to look at the prior cardiac catheterization films as their facility is literally attached to the [facility], so they can review this prior to performing cardiac catheterization. CC: Dr. Joby Guerra at the [facility] in [place]* [id number]/CPS #: [id number] MTDD
[2016-10-01] MEDS ORDERED: Cyclobenzaprine TAB* 10 MG PO SCH (21:00)
[2016-10-01] MEDS ORDERED: Docusate CAP* 100 MG PO SCH (21:00)
--- NOTE | 2016-10-02 08:24 | DS ---
HOSPITAL MEDICINE DISCHARGE SUMMARY WITH TRANSFER: DATE OF ADMISSION: 10/01/16 DATE OF TRANSFER: 10/01/16 ATTENDING PHYSICIAN: Navya Alvarez MD * (Dictated by Jolanta Brown NP) PRIMARY DIAGNOSIS: Non ST-elevation myocardial infarction. SECONDARY DIAGNOSES: 1. History of coronary artery disease with CABG x2. 2. Pericardial stripping. 3. Gastroesophageal reflux disease. 4. Hypertension. 5. Heart failure, systolic. 6. Peripheral vascular disease. 7. Type 2 diabetes, diet controlled. 8. History of heparin-induced thrombocytopenia. 9. Left leg deep vein thrombosis with pulmonary embolism, on warfarin. 10. Lupus. 11. Chronic low back pain. 12. Dyslipidemia. 13. Atrial flutter. MEDICATIONS AT THE TIME OF DISCHARGE: 1. Aspirin 325 mg p.o. daily. 2. Atorvastatin 40 mg p.o. daily. 3. Clopidogrel 75 mg mg p.o. daily, started today with a 300 mg loading dose. 4. Cyclobenzaprine 20 mg p.o. at bedtime. 5. Colace 100 mg p.o. b.i.d. 6. Furosemide 60 mg p.o. daily. 7. Gabapentin 400 mg p.o. t.i.d. 8. Hydrocodone with acetaminophen one tab p.o. q.6 hours p.r.n. 9. Hydrochloroquine 200 mg p.o. daily. 10. Lisinopril 5 mg p.o. daily. 11. Metoprolol tartrate 50 mg p.o. b.i.d. 12. The patient is on warfarin at home; this has been held today. His INR today is 2.30. HOSPITAL COURSE: Mr. Muñiz is a 71-year-old male with a past medical history of significant coronary artery disease with CABG x2, A-flutter, diet- controlled diabetes who presented to the hospital today with concern for chest pain. Mr. Muñiz states that he was feeling well yesterday; however, at 3 a.m. he had awoken with severe pain in bilateral low extremities. This was followed up within 30 minutes with severe substernal chest pain. The patient states that he has ongoing chest pains that is chronic for him related to his two sternotomies with CABG, but that this was much more severe in nature. Via EMS, the patient's heart rate was elevated to 140s to 150s. This persisted into the emergency room. His pain continued despite the use of nitroglycerin and aspirin. He was given metoprolol intravenously and his heart rate came down into the 80s. EKG also, in addition, was showing tachycardia initially also showed ST depressions in the V leads, which resolved with his heart rate returned to sinus rhythm. The patient's initial troponin was 1.35, a second troponin was 8.70, and the third troponin was 16.64. Throughout his time in the emergency room and in the hospital, he has complained of chest discomfort, but he states that this all consistent with his history of chronic discomfort and not severe or intense as it was this morning. His repeat EKGs continued to show that his ST depressions in the V leads have resolved. He did have a transthoracic echocardiogram, which was read as follows: "There is moderately left ventricular systolic function with estimated ejection fraction of 30% to 35%. The left ventricular diastolic filling pattern is consistent with pseudonormalization. The right ventricular global systolic function is mildly reduced. [id number] aortic stenosis." Mr. Muñiz was seen in consultation by Dr. Lance on admission from our cardiology team. She recommended that the patient be started on Plavix and metoprolol as has been done. She spoke with the patient's frameman's team with [facility] and Dr. Fisher. They note that the cardiac labor specialist at the [facility] is not functioning; and that, if he needed to be transferred, he should be transferred to [facility]. As Mr. Muñiz's troponin has increased, I have involved the pre algebra teacher, Dr. Fletcher. He has reviewed the patient's record. I refer you to the record available at [facility] and also from Dr. Fletcher's note today. Mr. Muñiz has extensive severe cardio coronary artery disease including occlusion of his [place] vessels and some of his grafts. Given his history and severity of coronary artery disease with CABG x2, it is recommended that the patient be transferred back to [facility] for possible intervention including cardiac catheterization or ablation as it is suspected that tachycardia precipitated this episode. Dr. Fletcher has spoke with the team at [facility] and the patient is being accepted there by Dr. Gomez. DISPOSITION: To [facility]. DIET: N.p.o. TIME SPENT: Approximately 90 minutes were spent in the discharge of this patient, more than half the time spent with him at the bedside reviewing the events leading up to and during this hospitalization, performing the physical examination, and reviewing the plan [place] [id number]/[facility] #: [id number] BRENDA
[2016-10-02] MEDS ORDERED: Hydroxychloroquine TAB* 200 MG PO SCH (09:00)
[2016-10-02] MEDS ORDERED: Furosemide TAB* 20 MG PO SCH (09:00)
[2016-10-02] MEDS ORDERED: Lisinopril TAB* 10 MG PO SCH (09:00)
[2016-10-02] MEDS ORDERED: Clopidogrel TAB* 75 MG PO SCH (09:00)
[2016-10-02] MEDS ORDERED: Atorvastatin* 40 MG TAB PO SCH (09:00)
[2016-10-02] MEDS ORDERED: Metoprolol Tartrate TAB* 50 mg PO SCH (09:00)
[2016-10-02] MEDS ORDERED: Aspirin TAB* 325 MG PO SCH (09:00)
[2016-10-02] MEDS ORDERED: Warfarin TAB(*) 4 MG PO SCH (17:00)
== END 2016-10-01 19:50 | disposition short-term general hospital (02) | DRG 281 ==
LOC: ED 08:29 → MEDTELE 10:23
PROVIDERS: ADMIT Hospitalist; ATTEND Hospitalist
DX: I21.4 Non-ST elevation (NSTEMI) myocardial infarction (principal); I50.22 Chronic systolic (congestive) heart failure; E11.51 Type 2 diabetes mellitus with diabetic peripheral angiopathy without gangrene; I11.0 Hypertensive heart disease with heart failure; M32.9 Systemic lupus erythematosus, unspecified; I25.10 Atherosclerotic heart disease of native coronary artery without angina pectoris; K21.9 Gastro-esophageal reflux disease without esophagitis; M54.5 Low back pain; G89.29 Other chronic pain; E78.5 Hyperlipidemia, unspecified; I45.10 Unspecified right bundle-branch block; R00.0 Tachycardia, unspecified; I35.0 Nonrheumatic aortic (valve) stenosis; Z95.1 Presence of aortocoronary bypass graft; Z86.718 Personal history of other venous thrombosis and embolism; Z79.82 Long term (current) use of aspirin; Z79.02 Long term (current) use of antithrombotics/antiplatelets; Z88.8 Allergy status to other drugs, medicaments and biological substances; Z82.49 Family history of ischemic heart disease and other diseases of the circulatory system; Z83.3 Family history of diabetes mellitus; Z98.1 Arthrodesis status
CPT/HCPCS: 36415; 71010; 80053; 83605; 84484; 85025; 85379; 85610; 93005; 93306; A9270-GY; C8929; J2270

== ENCOUNTER 2016-12-19 07:13 | Emergency (ER) | payer OTHER ==
[~2016-12-19 07:13] MED LIST changes: -Aspirin Low Dose CHEW TAB* 81 MG PO ONE; +EPINEPHrine SYR 0.1 MG/ML* (1:10,000) SYRINGE ONE; +Sodium Bicarbonate 8.4%* 50 ML SYRINGE ONE
[2016-12-19] MEDS ORDERED: Aspirin Low Dose CHEW TAB* 81 MG PO ONE (07:23)
[2016-12-19 07:30] LABS: Comments Flag Yes; Hematocrit 29 % (42-52); Hemoglobin 9.2 g/dl (14.0-18.0); Mean Corpuscular HGB Conc 32 g/dl (31-36); Mean Corpuscular Hemoglobin 32 pg (27-31); Mean Corpuscular Volume 100 fL (80-94); Mean Platelet Volume 10 um3 (7.4-10.4); Red Cell Distribution Width 19 % (10.5-15); White Blood Count 10.3 10^3/ul (3.5-10.8)
[2016-12-19 07:31] LABS: Add Diff/Slide Review? Slide Review Added
[2016-12-19] MEDS ORDERED: DOPamine 200 MG/250 ML IVPREM* 200 MG/250 ML ML IV ONE (07:45)
[2016-12-19 07:46] LABS: Calcium 8.5 mg/dL (8.6-10.3); EGFR African American 68.2 (>60); Globulin 4.1 g/dL (2-4); Magnesium 2.3 mg/dL (1.9-2.7); Total Bilirubin 2.3 mg/dL (0.2-1.0); Total Protein 7.1 g/dL (6.4-8.9)
[2016-12-19 07:49] LABS: Troponin I 0.02 ng/mL (<0.04)
[2016-12-19 07:52] LABS: Potassium 2.2 mmol/L (3.5-5.0)
[2016-12-19] MEDS ORDERED: KCL 10 MEQ/50 ML IVPREMIX* 10 MEQ/50 ML BAG IV SCH (08:00)
[2016-12-19 08:01] VITALS: BP 61/40
[2016-12-19 08:07] LABS: Add Path Review? YES; Hypochromasia 1+; Immature Granulocytes 7 % (0-9); Macrocytosis 2+; Metamyelocytes % 2 % (0-2); Neutrophil % 37 % (38-83); Reactive Lymph % 4 % (0-6)
[2016-12-19 08:08] LABS: Polychromasia 1+
--- NOTE | 2016-12-19 08:17 | RAD ---
Indication: Unresponsive. Single frontal view of the chest performed at 0735 hours was reviewed. Comparison is made with previous exam dated October 16, 2016. Interstitial edema with pulmonary edema is noted. ET tube appears appropriately indication. IMPRESSION: CARDIOMEGALY WITH INTERSTITIAL EDEMA LIKELY DUE TO PULMONARY EDEMA.
[2016-12-19 08:18] LABS: TSH (Thyroid Stimulating Horm) 11.83 mcIU/mL (0.34-5.60)
--- NOTE | 2016-12-19 09:14 | ED ---
Olga Lidia Kiran Auryana, scribed for Izaiah Estrella MD on 12/19/16 at 0733 . Cardiac Resuscitation - HPI Summary HPI Summary: 71 year old male TERRANCE as an ABC alert called at 06:58AM. On EMS arrival, patient had been down for 4 minutes, and CPR was done 15-20 minutes DEPUTY SHERIFF BAILIFF. Patient epinephrine x7 en route, and 1 shock - showing V-tach on monitor en route to ED. (+) pulse on arrival. PMHx is significant for CABG X2, DVT/PE, pericardial stripping, HTN, CHF, and DM ( diet controlled). - History of Current Complaint Stated Complaint: CARDIC ARREST Time Seen by Provider: 12/19/16 07:13 Hx Obtained From: EMS, Medical Records Hx From Patient Unobtainable Due To: Other - level 5 caveat due to unresponsiveness. Onset/Duration: Minutes/Hours: - 4 minutes down time DEPUTY SHERIFF BAILIFF, 15-20 minutes CPR DEPUTY SHERIFF BAILIFF Arrest Witnessed: Yes Down-time Before Advanced Life Support Initiated: Down-time before ALS initiated : - 4 Was AED Placed on Patient: Yes AED Placed on Patient By: EMS Did AED Recommend Defibrillation: Yes Was Defibrillating Shock Administered: Yes Did Patient Have Return of Spontaneous Circulation (ROSC): Yes - Prehospital Findings Breathing: Apnea Circulation/Rhythm: Spontaneous Pulses Absent Disability/Neurologic: Unresponsive - Prehospital Intervention Airway: Other: - intubation Breathing: Oxygen-Bag Circulation/Rhythm: Chest Compressions, Epinephrine: - x7 - Prehospital Response Airway: Gag Reflex Absent Breathing: ETT in Airway: Circulation/Rhythm: Spontaneous Pulses Absent - Allergies/Home Medications Allergies/Adverse Reactions: Allergies Allergy/AdvReac Type Severity Reaction Status Date / Time Heparin Allergy Bleeding Verified 10/01/16 09:43 - Past Medical History Past Medical History: Coronary Artery Disease - CABG X2, Other: - pe/dvt - Family History Family History: Other: - CAD/CABG, DM - Review of Systems Review of Systems: Other: - level 5 caveat due to unresponsiveness. Physical Examination - Physical Examination Completion Of Physical Exam Limited Due To: Other - Unresponsive Physical Exam Additional Comments: Vital signs: reviewed General: Patient is BIBEMS on active CPR. Patient is intubated. HEENT: Pupils are fixed and dilated. Lungs: bilateral crackles CVS: S1 & S2 present. ABDOMEN: Soft, distended, decreased BS,. EXTREMITIES: 1 + edema NEURO: Unresponsive SKIN: Dry and warm - ED Findings Airway: Patent - Intubated Circulation/Rhythm: PEA Disability/Neurological: Unresponsive - ED Intervention Breathing: ETT Cuffed Circulation/Rhythm: Chest Compressions - ED Response Breathing: ETT in Airway: Circulation/Rhythm: PEA - Glascow Coma Score Eye Openin - None Motor: 1 - None Verbal: 1 - Intubated Coma Scale Total: 3 T Diagnostics - Vital Signs Vital Signs Temp Pulse Resp BP Pulse Ox 12/19/16 07:57 88 12/19/16 07:49 45 61/40 75 12/19/16 07:44 66 61/44 12/19/16 07:39 79 81/65 88 12/19/16 07:34 82 84/65 12/19/16 07:29 84 98/68 12/19/16 07:24 86 127/83 12/19/16 07:19 91 18 135/87 90 12/19/16 07:15 96.7 F 80 28 140/90 93 - Laboratory Lab Results: Lab Results 12/19/16 12/19/16 12/19/16 Range/Units 07:20 07:20 07:20 WBC 10.3 (3.5-10.8) 10^3/ul RBC 2.90 L (4.0-5.4) 10^6/ul Hgb 9.2 L (14.0-18.0) g/dl Hct 29 L (42-52) % MCV 100 H (80-94) fL MCH 32 H (27-31) pg MCHC 32 (31-36) g/dl RDW 19 H (10.5-15) % Plt Count 62 L (150-450) 10^3/ul MPV 10 (7.4-10.4) um3 Immature Gran % (Auto) 7 (0-9) % Neut % (Auto) 40.8 (38-83) % Lymph % (Auto) 52.4 H (25-47) % [place] % (Auto) 5.5 (1-9) % Eos % (Auto) 0.4 (0-6) % Baso % (Auto) 0.9 (0-2) % Absolute Neuts (auto) 4.2 (1.5-7.7) 10^3/ul Absolute Lymphs (auto) 5.4 H (1.0-4.8) 10^3/ul Absolute Monos (auto) 0.6 (0-0.8) 10^3/ul Absolute Eos (auto) 0 (0-0.6) 10^3/ul Absolute Basos (auto) 0.1 (0-0.2) 10^3/ul Absolute Nucleated RBC 0.11 10^3/ul Neutrophils % 37 L (38-83) % Band Neutrophils % 5 (0-8) % Lymphocytes % 42 (25-47) % Reactive Lymphs % 4 (0-6) % Monocytes % 10 (0-13) % Metamyelocytes % 2 (0-2) % Nucleated RBC % 1.0 Nucleated RBCs/100 WBC 2 H (0-0) Normal RBC Morphology Not Reportable Polychromasia 1+ Hypochromasia 1+ Macrocytosis 2+ Hem Pathologist Commnt Pending INR (Anticoag Therapy) 1.75 H (0.89-1.11) Sodium 126 L (133-145) mmol/L Potassium 2.2 L* (3.5-5.0) mmol/L Chloride 77 L (101-111) mmol/L Carbon Dioxide 31 (22-32) mmol/L Anion Gap 18 H (2-11) mmol/L BUN 16 (6-24) mg/dL Creatinine 1.33 H (0.67-1.17) mg/dL Est GFR ( Amer) 68.2 (>60) Est GFR (Non-Af Amer) 53.0 (>60) BUN/Creatinine Ratio 12.0 (8-20) Glucose 156 H (70-100) mg/dL Lactic Acid (0.5-2.0) mmol/L Calcium 8.5 L (8.6-10.3) mg/dL Magnesium 2.3 (1.9-2.7) mg/dL Total Bilirubin 2.30 H (0.2-1.0) mg/dL AST 28 (13-39) U/L ALT 16 (7-52) U/L Alkaline Phosphatase 65 (34-104) U/L Total Creatine Kinase 74 (10-223) U/L CK-MB (CK-2) 2.3 (0.6-6.3) ng/mL Troponin I 0.02 (<0.04) ng/mL B-Natriuretic Peptide ( - 100) pg/mL Total Protein 7.1 (6.4-8.9) g/dL Albumin 3.0 L (3.2-5.2) g/dL Globulin 4.1 H (2-4) g/dL Albumin/Globulin Ratio 0.7 L (1-3) TSH Pending 12/19/16 12/19/16 Range/Units 07:20 07:20 WBC (3.5-10.8) 10^3/ul RBC (4.0-5.4) 10^6/ul Hgb (14.0-18.0) g/dl Hct (42-52) % MCV (80-94) fL MCH (27-31) pg MCHC (31-36) g/dl RDW (10.5-15) % Plt Count (150-450) 10^3/ul MPV (7.4-10.4) um3 Immature Gran % (Auto) (0-9) % Neut % (Auto) (38-83) % Lymph % (Auto) (25-47) % [place] % (Auto) (1-9) % Eos % (Auto) (0-6) % Baso % (Auto) (0-2) % Absolute Neuts (auto) (1.5-7.7) 10^3/ul Absolute Lymphs (auto) (1.0-4.8) 10^3/ul Absolute Monos (auto) (0-0.8) 10^3/ul Absolute Eos (auto) (0-0.6) 10^3/ul Absolute Basos (auto) (0-0.2) 10^3/ul Absolute Nucleated RBC 10^3/ul Neutrophils % (38-83) % Band Neutrophils % (0-8) % Lymphocytes % (25-47) % Reactive Lymphs % (0-6) % Monocytes % (0-13) % Metamyelocytes % (0-2) % Nucleated RBC % Nucleated RBCs/100 WBC (0-0) Normal RBC Morphology Polychromasia Hypochromasia Macrocytosis Hem Pathologist Commnt INR (Anticoag Therapy) (0.89-1.11) Sodium (133-145) mmol/L Potassium (3.5-5.0) mmol/L Chloride (101-111) mmol/L Carbon Dioxide (22-32) mmol/L Anion Gap (2-11) mmol/L BUN (6-24) mg/dL Creatinine (0.67-1.17) mg/dL Est GFR ( Amer) (>60) Est GFR (Non-Af Amer) (>60) BUN/Creatinine Ratio (8-20) Glucose (70-100) mg/dL Lactic Acid 9.9 H* (0.5-2.0) mmol/L Calcium (8.6-10.3) mg/dL Magnesium (1.9-2.7) mg/dL Total Bilirubin (0.2-1.0) mg/dL AST (13-39) U/L ALT (7-52) U/L Alkaline Phosphatase (34-104) U/L Total Creatine Kinase (10-223) U/L CK-MB (CK-2) (0.6-6.3) ng/mL Troponin I (<0.04) ng/mL B-Natriuretic Peptide 927 H ( - 100) pg/mL Total Protein (6.4-8.9) g/dL Albumin (3.2-5.2) g/dL Globulin (2-4) g/dL Albumin/Globulin Ratio (1-3) TSH Result Diagrams: 12/19/16 07:20 12/19/16 07:20 Lab Statement: Any lab studies that have been ordered have been reviewed, and results considered in the medical decision making process. - Radiology CXR Xray Interpretation: Positive (See Comments) - IMPRESSION: CARDIOMEGALY WITH INTERSTITIAL EDEMA LIKELY DUE TO PULMONARY EDEMA. Radiology Interpretation Completed By: Radiologist - EKG 07:20 EKG Interpretation: sinus rhythm @ 93 BPM, RBBB 07:18 EKG Interpretation: junctional rhythm @ 77 BPM, ST elevation V2 Cardiac Resus. Course/Dx - Course Assessment/Plan: 71 year old male BIBA as an ABC alert called at 06:58AM. On EMS arrival, patient had been down for 4 minutes, and CPR was done 15-20 minutes DEPUTY SHERIFF BAILIFF. Patient epinephrine x7 en route, and 1 shock - showing V-tach on monitor en route to ED. (+) pulse on arrival. PMHx is significant for CABG X2, DVT/PE, pericardial stripping, HTN, CHF, and DM ( diet controlled). Prior arrival EMS intubated patient ad has been given CPR for at least 15 minutes. They have given 7 epinephrine injections via IO. In the ED course 2 peripheral IV access was obtained. Patient was placed in a monitoring engineer. CHeck for pulses and are present. I stopped CPR. Patient was given one Epinephrine, bicarb and calcium gluconate. He was also started on potassium chloride for his hypokalemia. Monika signs are stable at this time. BP is getting weaker and I started the patient in Epi drip. It was titrated as needed. Patient was started with IV fluids. Patient is maintaining BP. Labs within normal limits except for chronic anemia. Hyponatremia, hypokalemia, glucose 9.9, troponin, 0.02, and BNP 927. EKG shows an idioventricular rhythm. CXR impression: cardiomegaly with pulmonary edema. ETT in place. Unable to do head CT to r/o CVA since patient very unstable. I discussed the case with Dr. Kaba who accepted patient for admission. Dr. Kaba discussed the case with patients son and decided to stop all treatments and removed the ETT since patient never wanted to be intubated. - Cardiac Resuscitation Differential Dx/HPI/PQRI: Asystole, Cardiac Rhythm Disturbance, Pulmonary Edema , Respiratory Failure - Diagnoses Provider Diagnoses: Cardiorespiratory failure - Provider Notifications Discussed Care Of Patient With: Lefty Sims - present on patient arrival to ED Time Discussed With Above Provider: 07:20 Instructed by Provider To: Admit As Inpatient Admit/Transition Orders Completed By ED Provider: Yes - Critical Care Time Critical Care Time: 30-74 min Discharge - Discharge Plan Condition: Disposition: Referrals: Elijah Roldan MD [Primary Care Provider] - The documentation as recorded by the Olga Lidia hernandez Auryana accurately reflects the service I personally performed and the decisions made by , Izaiah Estrella MD.
--- NOTE | 2016-12-19 11:14 | PN ---
Progress Note - Progress Note Date of Service: 12/19/16 Note: Patient brought in by EMS. Cardiac arrest. Down for for several minutes. CPR initially by the then Fire Department. EMS gave 7 epi and 1 amp bicarb. Got pulse. Intubated. In ED patient had pulse but both pupils blown. Placed on EPI drip. Patient's son came and is his health care proxy. Says his father was DNR/DNI and never wanted these aggressive measures. He asked that he be extubated. Patient extubated and epi drip was stopped. Comfort and support given to both patient and family Patient at 8:30 AM.
== END 2016-12-19 08:30 | disposition expired ==
LOC: ED 07:13 → EEVIPCON 07:13 → ED 08:30
DX: R09.2 Respiratory arrest (principal)
CPT/HCPCS: 36415; 71010; 80053; 82550; 82553; 83605; 83735; 83880; 84443; 84484; 85025; 85060; 85610; 92950; 93005; 94002; 94760; 96374; 96375; 99285; J0171; J1265